=== PATIENT | male | born 1955 | race Caucasian/White ===

== ENCOUNTER 2018-08-25 00:54 | Emergency (ER) | payer MEDICAID, OTHER ==
[2018-08-25 00:54] VITALS: BMI 31.4
[2018-08-25] MEDS ORDERED: Sodium Chloride 0.9% 1,000 ML IV ONE (01:35)
[2018-08-25] MEDS ORDERED: Sodium Chloride 0.9% 1,000 ML ONE (01:53)
[2018-08-25 02:01] LABS: BASO % 1.1 % (0.0-2.0); EOS # 0.2 K/uL (0.0-0.7); EOS % 4.9 % (0.0-4.0); HEMOGLOBIN 15.5 g/dL (12.0-18.0); LYMPH # 1.5 K/uL (1.0-4.3); LYMPH % 34.7 % (20.0-40.0); MEAN CELL VOLUME 84.3 fL (80.0-94.0); MEAN CORPUSCULAR HEMOGLOBIN 28.7 pg (27.0-31.0); MEAN PLATELET VOLUME 8.4 fL (7.2-11.7); MONO # 0.5 K/uL (0.0-0.8); MONO % 10.3 % (0.0-10.0); NEUT # 2.2 K/uL (1.8-7.0); NRBC % 0.2 % (0.0-2.0); RBC 5.41 Mil/uL (4.40-5.90); WHITE BLOOD COUNT 4.4 K/uL (4.8-10.8)
[2018-08-25 02:03] LABS: URINE BACTERIA RARE (<OCC); URINE BILIRUBIN NEGATIVE (NEGATIVE); URINE BLOOD NEGATIVE (NEGATIVE); URINE CLARITY Clear (Clear); URINE COLOR Colorless (YELLOW); URINE GLUCOSE (UA) NORMAL (Normal); URINE LEUKOCYTE ESTERASE NEG Leu/uL (Negative); URINE PROTEIN NEGATIVE (NEGATIVE); URINE UROBILINOGEN NORMAL mg/dL (0.2-1.0)
[2018-08-25 02:13] LABS: ALB/GLOB RATIO 1.2 (1.0-2.1); ALBUMIN 4.2 g/dL (3.5-5.0); ALT/SGPT 31 U/L (21-72); AST/SGOT 39 U/L (17-59); BLOOD UREA NITROGEN 12 mg/dL (9-20); CALCIUM 8.8 mg/dl (8.6-10.4); GFR NON-AFRICAN AMERICAN > 60; LIPASE 116 U/L (23-300)
[2018-08-25 03:20] VITALS: BP 154/79; PULSE 53; RESP 18; TEMP 98.4; O2SAT 100
--- NOTE | 2018-08-25 05:27 | C.PDOC ---
History Of Present Illness 63 year old male with PMHx of kidney stones presents to the ED c/o lower abdominal pain for the past 3-4 days. Patient denies fever, chills, nausea, vomit, diarrhea, blood in the stool, hematuria, rash. Time Seen by Provider: 08/25/18 01:20 Chief Complaint (Nursing): Back Pain History Per: Patient History/Exam Limitations: no limitations Onset/Duration Of Symptoms: Days (3-4) Current Symptoms Are (Timing): Still Present Quality Of Discomfort: "Pain" Recent travel outside of the [place]: No Additional History Per: Patient Past Medical History Reviewed: Historical Data, Nursing Documentation, Vital Signs Vital Signs: Last Vital Signs Temp 98.4 F 08/25/18 03:19 Pulse 53 L 08/25/18 03:19 Resp 18 08/25/18 03:19 BP 154/79 H 08/25/18 03:19 Pulse Ox 100 08/25/18 03:19 - Medical History PMH: Kidney Stones Surgical History: No Surg Hx Family History: States: Unknown Family Hx - Social History Hx Tobacco Use: No Hx Alcohol Use: No Hx Substance Use: No - Immunization History Hx Tetanus Toxoid Vaccination: No Hx Influenza Vaccination: Yes Hx Pneumococcal Vaccination: No Review Of Systems Constitutional: Negative for: Fever, Chills Cardiovascular: Negative for: Chest Pain, Palpitations Respiratory: Negative for: Shortness of Breath Gastrointestinal: Positive for: Abdominal Pain. Negative for: Nausea, Vomiting, Melena Genitourinary: Negative for: Dysuria, Hematuria Skin: Negative for: Rash Neurological: Negative for: Weakness, Numbness Physical Exam - Physical Exam Appears: Non-toxic, No Acute Distress Skin: Normal Color, Warm, Dry Head: Atraumatic, Normacephalic Eye(s): bilateral: Normal Inspection Oral Mucosa: Moist Neck: Normal ROM, Supple Chest: Symmetrical Cardiovascular: Rhythm Regular Respiratory: Normal Breath Sounds, No Rales, No Rhonchi, No Wheezing Gastrointestinal/Abdominal: Soft, Tenderness (minimal suprapubic), No Guarding, No Rebound Back: No CVA Tenderness Extremity: Normal ROM, No Tenderness, No Swelling Neurological/Psych: Oriented x3, Normal Speech, Normal Cognition Gait: Steady ED Course And Treatment - Laboratory Results Result Diagrams: 08/25/18 01:57 08/25/18 01:57 Lab Results: Total Bilirubin 0.6 mg/dL (0.2-1.3) 08/25/18 01:57 AST 39 U/L (17-59) 08/25/18 01:57 ALT 31 U/L (21-72) 08/25/18 01:57 Alkaline Phosphatase 60 U/L (38-126) 08/25/18 01:57 Total Protein 7.7 g/dL (6.3-8.3) 08/25/18 01:57 Albumin 4.2 g/dL (3.5-5.0) 08/25/18 01:57 Globulin 3.5 gm/dL (2.2-3.9) 08/25/18 01:57 Albumin/Globulin Ratio 1.2 (1.0-2.1) 08/25/18 01:57 Lipase 116 U/L (23-300) 08/25/18 01:57 Urine Color Colorless (YELLOW) 08/25/18 01:57 Urine Clarity Clear (Clear) 08/25/18 01:57 Urine pH 6.0 (5.0-8.0) 08/25/18 01:57 Ur Specific [place] 1.000 (1.003-1.030) L 08/25/18 01:57 Urine Protein Negative mg/dL (NEGATIVE) 08/25/18 01:57 Urine Glucose (UA) Normal mg/dL (Normal) 08/25/18 01:57 Urine Ketones Negative mg/dL (NEGATIVE) 08/25/18 01:57 Urine Blood Negative (NEGATIVE) 08/25/18 01:57 Urine Nitrate Negative (NEGATIVE) 08/25/18 01:57 Urine Bilirubin Negative (NEGATIVE) 08/25/18 01:57 Urine Urobilinogen Normal mg/dL (0.2-1.0) 08/25/18 01:57 Ur Leukocyte Esterase Neg [place]/uL (Negative) 08/25/18 01:57 Urine Bacteria Rare (<OCC) 08/25/18 01:57 O2 Sat by Pulse Oximetry: 100 (ON RA) Pulse Ox Interpretation: Normal - CT Scan/US Ct abd/pelvis Other Rad Studies (CT/US): Read By Radiologist, Radiology Report Reviewed CT/US Interpretation: CT of the abdomen and pelvis without contrast. Clinical statement: Pain. Technique: Multiple axial CT images were obtained from the base of the lungs to the floor of the pelvis utilizing 5 mm axial slices without administration of contrast. Coronal and sagittal reconstructions were also o btained. Comparison: 08/17/2014. Findings: Chest: The visualized lung bases are clear. Abdomen: The kidneys are normal in size bilaterally. There is mild left-sided hydronephrosis and hydroureter. The liver, spleen, pancreas, gallbladder and adrenal glands are unremarkable. The aorta demonstrates normal caliber and contour. There is no abdominal lymphadenopathy or ascites. Pelvis: The bowel is unremarkable, with no obstructive or inflammatory changes. The appendix is normal. The urinary bladder contains a 9 mm stone. No bladder masses are seen. There is no pelvic lymphadenopathy or ascites. The other pelvic structures appear unremarkable. Bones: There are no suspicious osseous abnormal ities seen. Impression: 1. 9 mm stone in the urinary bladder. 2. Mild left- sided hydronephrosis and hydroureter. A recently passed stone cannot be excluded. 3. No obstructive or inflammatory bowel changes. . Electronically signed on Aug 25, 2018 2:51:00 AM EST by: Steven Dela Cruz M.D., [place] Certified By [facility]BR & [facility]. Fellowship Trained MRI and CT Specialist Medical Decision Making Medical Decision Making: Plan: * CT abd/pelvis * Labs * IV fluids * Toradol 30 mg IVP * urine culture * UA Disposition - Disposition Referrals: Jozef Joyner MD [Staff Provider] - Disposition: HOME/ ROUTINE Disposition Time: 00:30 Condition: GOOD Additional Instructions: WENDY WHITE, thank you for letting us take care of you today. The emergency medical care you received today was directed at your acute symptoms. If you were prescribed any medication, please fill it and take as directed. It may take several days for your symptoms to resolve. Return to the Emergency Department if your symptoms worsen, do not improve, or if you have any other problems. Please contact your doctor or call one of the physicians/clinics you have been referred to that are listed on the Patient Visit Information form that is included in your discharge packet. Bring any paperwork you were given at discharge with you along with any medications you are taking to your follow up visit. Our treatment cannot replace ongoing medical care by a primary care provider outside of the emergency department. Thank you for allowing the [facility] team to be part of your care today. Follow up with the urologist in 2 days for re-evaluation and further management. Return to the emergency room if you have any concerns. Prescriptions: Ciprofloxacin [Cipro] 500 mg PO BID #14 tab Ibuprofen [Motrin] 600 mg PO Q6 PRN #20 tab PRN Reason: Pain, Moderate (4-7) Tamsulosin [Flomax] 0.4 mg PO DAILY #7 cap Instructions: Kidney Stones in Adults Forms: [facility] (Danish) - Clinical Impression Clinical Impression: Kidney stone - Scribe Statement The provider has reviewed the documentation as recorded by the Scribe Mathew Holland All medical record entries made by the Scribe were at my direction and personally dictated by me. I have reviewed the chart and agree that the record accurately reflects my personal performance of the history, physical exam, me dical decision making, and the department course for this patient. I have also personally directed, reviewed, and agree with the discharge instructions and disposition.
--- NOTE | 2018-08-25 11:48 | CT ---
Date of service: 08/25/2018 PROCEDURE: CT Abdomen and Pelvis without intravenous contrast HISTORY: flank pain with suprapubic tenderness COMPARISON: Unenhanced abdomen pelvis CT 08/17/2014 TECHNIQUE: Helical CT of the abdomen and pelvis was performed without oral or intravenous contrast as per referring physician request. Coronal and sagittal reformats were generated. Contrast dose: None Radiation dose: Total exam DLP = 788.51 mGy-cm. This CT exam was performed using one or more of the following dose reduction techniques: Automated exposure control, adjustment of the mA and/or kV according to patient size, and/or use of iterative reconstruction technique. FINDINGS: LOWER THORAX: Unremarkable. LIVER: Stable lucency medial dome liver 2.8 x 2.0 cm. Remainder of the liver is unremarkable in this unenhanced exam. GALLBLADDER AND BILE DUCTS: Unremarkable. PANCREAS: Unremarkable. No gross lesion or ductal dilatation. SPLEEN: Unremarkable. ADRENALS: Unremarkable. No mass. KIDNEYS AND URETERS: No radiodense urolithiasis, perinephric fluid collection or obstructive uropathy is appreciate bilaterally. The bilateral ureters appear normal caliber overall. Stable pelvocaliceal volumes bilaterally. VASCULATURE: Unremarkable. No aortic aneurysm. No aortic atherosclerotic calcification or mural plaque present. BOWEL: Unremarkable. No obstruction. No gross mural thickening. APPENDIX: Unremarkable. Normal appendix. PERITONEUM: Unremarkable. No free fluid. No free air. LYMPH NODES: Unremarkable. No enlarged lymph nodes. BLADDER: Distended with 1.0 cm calculus in urinary bladder. REPRODUCTIVE: Unremarkable. BONES: No acute fracture. OTHER FINDINGS: None. IMPRESSION: No radiodense urolithiasis, perinephric fluid collection or obstructive uropathy is appreciate bilaterally. The bilateral ureters appear normal caliber overall. 1.0 cm calculus is identified in the dependent urinary bladder once again. Hepatic cyst again identified. Preliminary report provided by [facility], 08/25/2018, 2:51 a.m..
== END 2018-08-25 03:31 | disposition home or self-care (01) ==
LOC: C.ER 00:54
DX: N20.0 Calculus of kidney (principal); Z87.442 Personal history of urinary calculi
CPT/HCPCS: 74176; 80053; 81001; 83690; 85025; 87086; 96374; 99285; J1885; J7030

== ENCOUNTER 2018-10-02 09:40 | Outpatient (CLI) | payer MEDICAID | END 2018-10-02 09:41 | disposition home or self-care (01) | LOC: C.CARD 09:40 | DX: N21.0 Calculus in bladder (principal) ==